=== PATIENT | female | born 1975 | race Caucasian/White ===

== ENCOUNTER 2023-12-12 07:57 | Outpatient (REF) | payer BC, SELFPAY | END 2023-12-12 07:58 | disposition home or self-care (01) | LOC: HO.SH 07:57 | PROVIDERS: Visit Provider Family Medicine | DX: Z01.118 Encounter for examination of ears and hearing with other abnormal findings (principal); H91.93 Unspecified hearing loss, bilateral | CPT/HCPCS: 92557; 92567 ==

== ENCOUNTER 2024-02-02 12:49 | Outpatient (AMB) | payer BC, SELFPAY ==
--- NOTE | 2024-02-02 12:52 | A.OFFVIS_ITS ---
Vital Signs 02/02/24 12:57 Height 4 ft 11.5 in Weight 167 lb 15.876 oz BMI 33.4 BP 126/66 Blood Pressure Location Lt brachial Position Sitting Intake Visit Reasons: Colonoscopy Screening Intake Note: New patient in office today for colonoscopy screening. CC: Patient denies having any GI concerns or symptoms today. Doctor Of Dental Surgery Required: Yes Allergies erythromycin base Allergy (Unknown, Verified 02/02/24 13:00) Vomiting Penicillins Allergy (Unknown, Verified 02/02/24 13:00) Unknown Seasonal Allergies Allergy (Unknown, Verified 02/02/24 13:00) Unknown Sulfa (Sulfonamide Antibiotics) Allergy (Unknown, Verified 02/02/24 13:00) Unknown HPI HPI Colonoscopy Screening: Details: 48-year-old female here for preprocedural meeting to discuss a screening colonoscopy. She is referred by [facility]. PMX ALLERGIC RHINITIS DIANA Obesity-BMI of 33 Hypothyroid High cholesterol Carpal tunnel syndrome Depression Hard of hearing * SURGICAL HISTORY D&C Cyst removed from back * ALLERGY Erythromycin Penicillin Sulfa * [place] LABS: None in our system TODAY'S VISIT This is her first colonoscopy. She denies any bowel or upper GI problems She has had N/V after general anesthesia and hypotension. She has sleep apnea but no other respiratory problems and she denies any cardiac problems No ID problems. She had a paternal grandfather with colon polyps. She does not know her father had polyps because they are not in touch. [facility] Surgical History H/O excision of dermoid cyst H/O cystoscopy H/O dilation and curettage Family History Mother Hyperthyroidism Father Asthma Renal calculi Sister Renal calculi Hypertensive disorder Paternal Grandfather Skin cancer Social History (Updated 02/01/24 @ 11:04 by JEFE Singer) Alcohol intake: never Patient Tobacco Use Status: Never used Tobacco Review of Systems Const Denies fatigue, Denies fever(s), Denies night sweats, Denies poor appetite and Denies weight loss Eyes Details: glasses Reports requires corrective lenses ENT Reports Normal hearing present, Denies dental pain, Denies dysphagia, Denies hearing loss, Denies mouth pain, Denies odynophagia, Denies throat swelling, Denies tongue swelling and Reports other (Dentition adequate) GI Details: Denies abdominal pain, Denies melena, Denies bloating, Denies hematochezia, Denies constipation, Denies GI cramping, Denies dysphagia, Denies excessive flatus, Denies early satiety, Denies heartburn, Denies diarrhea, Denies nausea, Denies odynophagia, Denies vomiting and Denies hematemesis Skin/Breast Denies pruritus, Denies lesions, Denies rash and Denies jaundice Neuro Reports Normal hearing present and Denies Abnormal speech present Endo Denies fatigue Aller/Immun Denies throat swelling and Denies tongue swelling Physical Exam Const General: cooperative, no acute distress, well developed and well groomed Nutritional Appearance: well nourished and overweight Orientation/consciousness: oriented to person, oriented to place and oriented to time Limitations: No language barrier HEENT Head: Yes normocephalic and Yes atraumatic Eyes General: appearance normal, both eyes and all related structures Pupils: Equal, round and reactive pupils present Neck Neck: Yes normal visual inspection and Yes no lymphadenopathy Thyroid: Thyroid normal Resp Effort & Inspection: normal respiratory effort and able to speak in complete sentences Auscultation: clear to auscultation bilaterally Cardio Rate: regular rate Rhythm: regular rhythm Heart sounds: Normal, physiologic split S2 sound present Peripheral pulses: radial pulses present and posterior tibial pulses present GI Inspection: No distended, No Abdominal panniculus present and Yes obesity Palpation (GI): Soft to palpation, nontender, no guarding, not rigid and No hepatosplenomegaly present Percussion: Yes normal to percussion Auscultation: normal bowel sounds Rectal Exam - Female: deferred Skin General skin exam: no rashes or lesions noted, turgor normal, skin not dry, no jaundice, No spider nevi and no striae Rashes: no rashes Nails: normal Neuro General: oriented to person, oriented to place and oriented to time Cranial nerves: Yes Equal, round and reactive pupils present and Yes Normal hearing present Speech: No Abnormal speech present Extrem General: Yes normal to inspection, No clubbing, No cyanosis and No edema Psych Appearance: grossly normal and well kempt Mental Status: mental status grossly normal Speech and movement: Normal speech and movement present Affect: normal affect Attitude: cooperative Thought process: Normal thought process present and not confabulating Thought content: Normal thought content present Insight: Fair insight present (Psych) Judgement: Fair judgement present (Psych) Assessment & Plan Assessment & Plan (1) Pre-op examination: Code(s): Z01.818 - Encounter for other preprocedural examination Category: Medical (2) DIANA (obstructive sleep apnea): Code(s): G47.33 - Obstructive sleep apnea (adult) (pediatric) Category: Medical (3) Hard of hearing: Code(s): H91.90 - Unspecified hearing loss, unspecified ear Category: Medical Plan This is her first colonoscopy. She denies any bowel or upper GI problems She has had N/V after general anesthesia and hypotension. She has sleep apnea but no other respiratory problems and she denies any cardiac problems No ID problems. She had a paternal grandfather with colon polyps. She does not know her father had polyps because they are not in touch. Coding Level of Care Code New Pt Level 3 (63672) Diagnoses Pre-op examination Z01.818 DIANA (obstructive sleep apnea) G47.33 Hard of hearing H91.90
[2024-02-02 12:57] VITALS: BP 126/66; BMI 33.4
== END 2024-02-02 13:19 | disposition home or self-care (01) ==
PROVIDERS: PCP Family Medicine; Visit Provider Nurse Practitioner
DX: Z01.818 Encounter for other preprocedural examination (principal); Z12.11 Encounter for screening for malignant neoplasm of colon; G47.33 Obstructive sleep apnea (adult) (pediatric)
CPT/HCPCS: S0285

== ENCOUNTER → 2024-02-02 12:49 | Outpatient (BNVA) | payer BC, SELFPAY | PROVIDERS: PCP Family Medicine; Visit Provider Nurse Practitioner ==

== ENCOUNTER 2024-11-18 07:55 | Day surgery (SDC) | payer BC, SELFPAY ==
[2024-11-18 07:32] VITALS: BMI 33.2
[2024-11-18 08:03] VITALS: BP 137/74; PULSE 84; RESP 18; TEMP 36.3; O2SAT 98
[2024-11-18 08:21] LABS: UPreg QC Valid YES; Urine Pregnancy NEGATIVE (NEGATIVE)
[2024-11-18] MEDS: Lactated Ringers 1,000 ML 50 ML IVCONT (08:27)
--- NOTE | 2024-11-18 08:37 | MHC.SHP ---
Pre-Procedural Eval Section A - 24 Hr Update-Section A only Date of Service: 11/18/24 The patient is an INPATIENT: No The patient has been examined within 24 hours of the surgical procedure. The History & Physical has been completed within 30 days and I have reviewed it.: No Section B - Complete if H&P > 30 days Chief Complaint: colon cancer screening Relevant Family History (Specify if Yes): Yes Relevant Social History: None Present Medications: see Short Stay Collaborative assessment Medical History: Significant History (Hypothyroidism, obstructive sleep apnea) History of Previous Operations: Relevant previous surgery/procedure and date(s) (H/O excision of dermoid cyst H/O cystoscopy H/O dilation and curettage) Allergies: Allergies Allergy/AdvReac Type Severity Reaction Status Date / Time erythromycin base Allergy Unknown Vomiting Verified 02/02/24 13:00 Penicillins Allergy Unknown Unknown Verified 02/02/24 13:00 Seasonal Allergies Allergy Unknown Unknown Verified 02/02/24 13:00 Sulfa (Sulfonamide Allergy Unknown Unknown Verified 02/02/24 13:00 Antibiotics) Review of Systems Sugical H&P ROS: Negative: Constitution, Cardiovascular, Respiratory and Gastrointestinal Exam Surgical H&P Exam: Normal: Heart, Normal: Lungs, Normal: Extremities and Normal: Abdomen Plan Diagnosis/Plan: Unchanged I have reviewed the history and physical and performed a pertinent physical examination on my patient. No changes have occurred unless specified. Time Spent With Patient Time: Total time managing care of this patient today ____ minutes.
--- NOTE | 2024-11-18 09:03 | HO.ANESPROP2 ---
FORM[facility]LY [facility], 1928–1983 Active Problems Active Problems: All Active Problems Pre-op examination (Acute) Hard of hearing (Acute) Depression (Acute) Carpal tunnel syndrome (Acute) High cholesterol (Acute) Hypothyroid (Acute) Obesity (BMI 30.0-34.9) (Acute) DIANA (obstructive sleep apnea) (Acute) Allergic rhinitis (Acute) Past Medical History Functional capacity: independent ambulation Patient : No Family History Family History Mother Hyperthyroidism Father Asthma Renal calculi Sister Renal calculi Hypertensive disorder Paternal Grandfather Skin cancer Surgical History Surgical History H/O excision of dermoid cyst H/O cystoscopy H/O dilation and curettage History of Problems with Anesthesia: No Social History Social History Alcohol intake: never Patient Tobacco Use Status: Never used Tobacco Have you been hit, kicked, punched, or otherwise hurt by someone within the past year? If so, by whom?: No Advance Directives: No Advance Directives Information Provided: Yes Patient : No Meds Allergies Allergy/AdvReac Type Severity Reaction Status Date / Time erythromycin base Allergy Unknown Vomiting Verified 02/02/24 13:00 Penicillins Allergy Unknown Unknown Verified 02/02/24 13:00 Seasonal Allergies Allergy Unknown Unknown Verified 02/02/24 13:00 Sulfa (Sulfonamide Allergy Unknown Unknown Verified 02/02/24 13:00 Antibiotics) Active Medications: Current Medications Lactated Ringer's (Lr) 1,000 mls @ 50 mls/hr IVCONT .Q20H DANNY Last Admin: 11/18/24 08:27 Dose: 50 mls/hr Home Medications ?Medication ?Instructions ?Recorded ?Confirmed ?Last Taken ?Type ascorbic acid (vitamin C) 500 mg 500 mg PO DAILY 02/01/24 Unknown History tablet,extended release (Vitamin C ER) cholecalciferol (vitamin D3) 25 25 mcg PO DAILY 02/01/24 Unknown History mcg (1,000 unit) capsule desogestrel-e.estradiol 0.15 1 tab PO DAILY 02/01/24 Unknown History mg-0.02 mg(21)/e.estrad 0.01 mg(5) tablet (Brandone (28)) levothyroxine 88 mcg capsule 88 mcg PO DAILY 02/01/24 Unknown History multivitamin 1 tab PO DAILY 02/01/24 Unknown History probiotic PO 02/01/24 Unknown History Exam Height,Weight and Vital Signs: Height 4 ft 11.5 in Weight 167 lb Last Vital Signs Temp 97.4 F 11/18/24 08:03 Pulse 84 11/18/24 08:03 Resp 18 11/18/24 08:03 BP 137/74 11/18/24 08:03 Pulse Ox 98 11/18/24 08:03 O2 Del Method Room Air 11/18/24 08:03 Pertinent Lab Results Pertinent Lab Results: Laboratory Tests 11/18/24 08:12 Urine Test NEGATIVE Airway Mallampati Class: III TM Dist: <=3cm Neck ROM: Full Heart: RRR Lungs: CTA Assessment and Plan Assessment Anesthesia Assessment: Anesthesia Plan Discussed Final Anesthetic Review History of Problems with Anesthesia: No NPO: Yes ASA Class: II Final Preanesthetic Review: No Changes in Pt Med Stat, Meds/Allgs Chart Reviewed, Consent Obtained/Reviewed and Anes Risks/Benef Reviewed Patient Risk: Low Procedure Risk: Low Anesthetic Plan Anesthetic Plan: TIVA Disposition: Standard PACU
--- NOTE | 2024-11-18 10:23 | P.OPN-COLO_ITS ---
Colonoscopy Operative Note Operative Note Date of Service: 11/18/24 Narrative: COLONOSCOPY TILL CECUM WITH BIOPSIES, SNARE POLYPECTOMY AND SUBMUCOSAL INJECTION Pre-op diagnosis: Colon cancer screening (first colon). Post-op diagnosis:? colon polyps, Diverticulosis, hemorrhoids Endoscopist:? Jhonathan Owens MD Anesthesia:?MAC Consent: Indications for the procedure and potential complications of bleeding, perforation, reaction to medications and missed diagnosis were discussed with the patient and informed consent was obtained. Instrument: Olympus PCF H 190 L variable stiffness pediatric colonoscope Monitoring: Vital signs and clinical assessment, intermittent blood pressure monitoring, continuous EKG monitoring, Pulse oximetry and Carbon Dioxide monitoring were done throughout the procedure. Please see anesthesia flowsheet. Colon withdrawl time was 23 minutes. Procedure: The patient was placed in the left lateral decubitis position and pre-procedure medications were administered. After a digital rectal examination of the ano-rectum, the video colonoscope was inserted into the rectum and advanced through the colon to the cecum. The colonoscope was slowly withdrawn in a retrograde panoramic fashion and the colon mucosa was carefully examined including a retroflexed view of the rectum. Findings and interventions are described below. Procedure Difficulty: without difficulty Findings: Terminal Ileum: Not evaluated Cecum: A 10-12 mm flat polyp adjacent to appendicular orifice. Polyp was raised with 3 cc of [place] and removed with a stiff hot snare. Ascending Colon: A 12 mm flat polyp in the proximal AC. Polyp was raised with 5 cc of [place] and removed with a stiff hot snare. A 3 mm sessile polyp in the distal ascending colon - removed with a cold biopsy Transverse Colon: Normal Descending Colon: Normal Sigmoid Colon: A 10 mm sessile polyp - removed with a stiff hot snare. Moderate diverticulosis Rectum: Normal Ano-rectum: Small internal hemorrhoids Colon preparation: Excellent after some irrigation. [place] Bowel Preparation Scale Right colon; 3 Transverse colon: 3 Left colon; 3 (0 = Unprepared colon segment with mucosa not seen due to solid stool that cannot be cleared. 1 = Portion of mucosa of the colon segment seen, but other areas of the colon segment not well seen due to staining, residual stool and/or opaque liquid. 2 = Minor amount of residual staining, small fragments of stool and/or opaque liquid, but mucosa of colon segment seen well. 3 = Entire mucosa of colon segment seen well with no residual staining, small fragments of stool or opaque liquid) Impression and Post Procedure Diagnosis: Colonoscopy Findings: Four small to medium sized polyps were removed Moderate diverticulosis seen in the sigmoid colon Small hemorrhoids on retroflexed exam. Plan: I will send a letter with biopsy results. Repeat Colonoscopy in 3-5 years if polyps are adenomatous and 10 year if polyps are hyperplastic. Above findings were reviewed with the patient and relevant handouts were given and the discharge area.
[2024-11-18 10:26] VITALS: BP 117/49; PULSE 71; RESP 18; TEMP 36.6; O2SAT 99
[2024-11-18 10:41] VITALS: BP 126/51; PULSE 62; RESP 18; TEMP 36.8; O2SAT 99
== END 2024-11-18 10:56 | disposition home or self-care (01) ==
PROVIDERS: Anesthesiology; PCP Family Medicine; Visit Provider Internal Medicine Gastroenterology
PROC: 0DJD8ZZ Inspection of Lower Intestinal Tract, Via Natural or Artificial Opening Endoscopic (ICD-10-PCS; CPT 45378; principal; 2024-11-18 09:20)
DX: Z12.11 Encounter for screening for malignant neoplasm of colon (principal); D12.0 Benign neoplasm of cecum; D12.5 Benign neoplasm of sigmoid colon; K57.30 Diverticulosis of large intestine without perforation or abscess without bleeding; K64.8 Other hemorrhoids; E78.00 Pure hypercholesterolemia, unspecified; E03.9 Hypothyroidism, unspecified; G47.33 Obstructive sleep apnea (adult) (pediatric); H91.90 Unspecified hearing loss, unspecified ear; F32.A Depression, unspecified
CPT/HCPCS: 45385; 45380; 45381; 81025; 88305; J1100; J2003; J2250; J2405; J2704

== ENCOUNTER → 2024-11-18 07:55 | Outpatient (BNV) | payer BC, SELFPAY | PROVIDERS: PCP Family Medicine; Visit Provider Internal Medicine Gastroenterology | DX: Z12.11 Encounter for screening for malignant neoplasm of colon (principal); K63.5 Polyp of colon; K57.90 Diverticulosis of intestine, part unspecified, without perforation or abscess without bleeding; K64.8 Other hemorrhoids | CPT/HCPCS: 45380; 45381; 45385 ==